=== PATIENT | female | born 1975 | race Caucasian/White ===

== ENCOUNTER 2017-06-12 16:37 | Outpatient (CLI) | payer OTHER ==
[~2017-06-12 16:37] MED LIST: METF850T PO
== END 2017-06-12 20:17 | disposition home or self-care (01) ==
LOC: MRD 16:37
PROVIDERS: ATTEND Family Medicine
DX: R22.1 Localized swelling, mass and lump, neck (principal)
CPT/HCPCS: 72050; 76536; Q0092

== ENCOUNTER 2017-06-17 06:22 | Outpatient (CLI) | payer OTHER ==
[2017-06-17 07:12] LABS: BASOPHILS # (AUTO) 0.2 K/uL (0.00-0.22); BASOPHILS % (AUTO) 2.1 % (0.0-2.0); EOSINOPHILS # (AUTO) 0.2 K/uL (0-0.4); EOSINOPHILS % (AUTO) 2.1 % (0.0-4.0); HEMATOCRIT 39.4 % (36-48); HEMOGLOBIN 13.2 g/dL (12.0-16.0); LYMPHOCYTES # (AUTO) 2.2 K/uL (2.5-16.5); LYMPHOCYTES % (AUTO) 30.6 % (20.5-51.1); MEAN CORPUSCULAR HEMOGLOBIN 31 pg (27-31); MEAN CORPUSCULAR HGB CONC 34 g/dL (33-37); MEAN CORPUSCULAR VOLUME 93 fL (80-94); MONOCYTES # (AUTO) 0.3 K/uL (0.8-1.0); MONOCYTES % (AUTO) 3.9 % (1.7-9.3); NEUTROPHILS # (AUTO) 4.3 K/uL (1.8-7.7); NEUTROPHILS % (AUTO) 61.3 % (42.2-75.2); PLATELET COUNT (AUTO) 307 K/uL (140-450); RED BLOOD CELL COUNT(AUTO) 4.25 MIL/uL (4.20-5.40); RED CELL DISTRIBUTION WIDTH 12.7 % (11.6-13.7); WHITE BLOOD COUNT (AUTO) 7.2 K/uL (4.8-10.8)
[2017-06-17 07:34] LABS: ALBUMIN 3.5 g/dL (3.4-5.0); ANION GAP 12.4 (8-16); CALCIUM 8.5 mg/dL (8.5-10.1); CARBON DIOXIDE 24.6 mmol/L (21-32); CHOL/HDL RATIO 6.5 (1-4.5); CREATININE 0.8 mg/dL (0.6-1.3); TOTAL BILIRUBIN 0.3 mg/dL (0.0-1.0); TOTAL PROTEIN, SERUM 7.5 g/dL (6.4-8.2)
== END 2017-06-17 21:21 | disposition home or self-care (01) ==
LOC: MLB 06:22
PROVIDERS: ATTEND Family Medicine
DX: E11.9 Type 2 diabetes mellitus without complications (principal)
CPT/HCPCS: 36415; 80053; 83036; 85025

== ENCOUNTER 2018-03-07 08:12 | Outpatient (CLI) | payer OTHER ==
[2018-03-07 09:04] LABS: BASOPHILS % (AUTO) 0.5 % (0.0-2.0); EOSINOPHILS # (AUTO) 0.1 K/uL (0-0.4); EOSINOPHILS % (AUTO) 1.6 % (0.0-4.0); HEMOGLOBIN 13.3 g/dL (12.0-16.0); LYMPHOCYTES # (AUTO) 1.3 K/uL (2.5-16.5); LYMPHOCYTES % (AUTO) 30.5 % (20.5-51.1); MEAN CORPUSCULAR HEMOGLOBIN 31 pg (27-31); MEAN CORPUSCULAR HGB CONC 34 g/dL (33-37); MEAN CORPUSCULAR VOLUME 92.1 fL (80-94); MONOCYTES # (AUTO) 0.3 K/uL (0.8-1.0); MONOCYTES % (AUTO) 6.5 % (1.7-9.3); NEUTROPHILS # (AUTO) 2.7 K/uL (1.8-7.7); NEUTROPHILS % (AUTO) 60.9 % (42.2-75.2); PLATELET COUNT (AUTO) 273 K/uL (140-450); RED BLOOD CELL COUNT(AUTO) 4.23 MIL/uL (4.20-5.40); RED CELL DISTRIBUTION WIDTH 13.4 % (11.6-13.7); WHITE BLOOD COUNT (AUTO) 4.4 K/uL (4.8-10.8)
[2018-03-07 10:22] LABS: ALBUMIN 3.4 g/dL (3.4-5.0); ANION GAP 13.3 (8-16); CREATININE 0.7 mg/dL (0.6-1.3); POTASSIUM 4.3 mmol/L (3.5-5.1); THYROID STIMULATING HORMONE 1.01 uIU/mL (0.34-3.74); TOTAL BILIRUBIN 0.4 mg/dL (0.0-1.0)
== END 2018-03-07 22:25 | disposition home or self-care (01) ==
LOC: MLB 08:12
PROVIDERS: ATTEND Student in an Organized Health Care Education/Training Program
DX: Z00.01 Encounter for general adult medical examination with abnormal findings (principal); R10.13 Epigastric pain; K21.9 Gastro-esophageal reflux disease without esophagitis; E11.9 Type 2 diabetes mellitus without complications; E78.5 Hyperlipidemia, unspecified
CPT/HCPCS: 36415; 76700; 80053; 82306; 83036; 84439; 84443; 85025

== ENCOUNTER 2018-08-06 14:30 | Emergency (ER) | payer OTHER ==
[~2018-08-06] VITALS: Ht 165.1 cm; Wt 99.8 kg
[2018-08-06 14:39] VITALS: BP 130/93
--- NOTE | 2018-08-06 15:07 | NUR ---
PT AMBULATES TO BED 7
--- NOTE | 2018-08-06 15:15 | NUR ---
PT C/O CHRONIC NECK PAIN WITH A BUMP X 2 YRS WITH VOMITING YESTERDAY AND NAUSEA TODAY, HEAD ACHE X 1 WK; DENIES INJURY HX; DM RX; METFORMIN
--- NOTE | 2018-08-06 16:11 | NUR ---
PT RESTING COMFORTABLY IN [facility] AT THIS TIME W/ VSS, RR EVEN AND UNLABORED. SAFETY PRECAUTIONS IN PLACE. WILL CONTINUE TO MONITOR.
[2018-08-06] MEDS ORDERED: HYDROcodone/APAP 10/325 MG 1 TAB TAB PO ONE (16:20)
--- NOTE | 2018-08-06 16:51 | NUR ---
PHLEB AT BEDSIDE
[2018-08-06 17:00] LABS: BASOPHILS # (AUTO) 0.1 K/uL (0.00-0.22); BASOPHILS % (AUTO) 0.8 % (0.0-2.0); EOSINOPHILS # (AUTO) 0.2 K/uL (0-0.4); EOSINOPHILS % (AUTO) 1.9 % (0.0-4.0); HEMOGLOBIN 13.5 g/dL (12.0-16.0); LYMPHOCYTES # (AUTO) 2.3 K/uL (2.5-16.5); LYMPHOCYTES % (AUTO) 27.9 % (20.5-51.1); MEAN CORPUSCULAR HEMOGLOBIN 31 pg (27-31); MEAN CORPUSCULAR HGB CONC 34 g/dL (33-37); MONOCYTES # (AUTO) 0.4 K/uL (0.8-1.0); MONOCYTES % (AUTO) 5.1 % (1.7-9.3); NEUTROPHILS # (AUTO) 5.2 K/uL (1.8-7.7); NEUTROPHILS % (AUTO) 64.3 % (42.2-75.2); PLATELET COUNT (AUTO) 322 K/uL (140-450); RED CELL DISTRIBUTION WIDTH 12.7 % (11.6-13.7); WHITE BLOOD COUNT (AUTO) 8.1 K/uL (4.8-10.8)
[2018-08-06 17:07] LABS: APPEARANCE,URINE CLEAR (CLEAR); BILIRUBIN,URINE NEGATIVE (NEGATIVE); BLOOD, URINE NEGATIVE (NEGATIVE); COLOR,URINE YELLOW (YELLOW); LEUKOCYTE ESTERASE ,URINE NEGATIVE (NEGATIVE); NITRITE, URINE NEGATIVE (NEGATIVE); PH,URINE 5.5 (5.0-9.0); UGLUCOSE 3+ (NEGATIVE)
--- NOTE | 2018-08-06 17:10 | NUR ---
PT CONTINUES TO REST COMFORTABLY ON [facility] AT THIS TIME W/ VSS. WILL CONTINUIE TO MONITOR, SAFETY PRECAUTIONS IN PLACE.
[2018-08-06 17:13] LABS: ANION GAP 11.5 (8-16); CARBON DIOXIDE 26.6 mmol/L (21-32); CREATININE 0.9 mg/dL (0.6-1.3); POTASSIUM 4.1 mmol/L (3.5-5.1)
[2018-08-06] MEDS ORDERED: KETOROLAC 60 MG/2 ML VIAL IM ONE (17:15)
[2018-08-06 17:19] LABS: ALBUMIN 3.7 g/dL (3.4-5.0); TOTAL BILIRUBIN 0.3 mg/dL (0.0-1.0)
--- NOTE | 2018-08-06 18:32 | NUR ---
PT TAKEN TO CT SCAN AT THIS TIME VIA W/C
--- NOTE | 2018-08-06 19:14 | NUR ---
PT RESTING COMFORTABLY IN [facility] AT THIS TIME W/ VSS, RR EVEN AND UNLABORED. PT NEEDS MET. WILL CONTINUE TO MONITOR.
--- NOTE | 2018-08-06 19:21 | NUR ---
TRANSFER OF CARE AT THIS TIME, REPORT GIVEN TO LUI ORTIZ
--- NOTE | 2018-08-06 19:22 | NUR ---
REPORT RECIEVED FROM ABIGAIL POE. PT IN STABLE CONDITION
[2018-08-06 19:51] VITALS: BP 126/85
--- NOTE | 2018-08-06 19:53 | NUR ---
Patient discharged with v/s stable. Written and verbal after care instructions given and explained. Patient alert, oriented and verbalized understanding of instructions. Ambulatory with steady gait. All questions addressed prior to discharge. ID band removed. Patient advised to follow up with PMD. Rx of FLEXERIL, DOXYCYCLINE given. Patient educated on indication of medication including possible reaction and side effects. Opportunity to ask questions provided and answered.
== END 2018-08-06 19:52 | disposition home or self-care (01) ==
LOC: MED 14:30
DX: R22.1 Localized swelling, mass and lump, neck (principal); R51 Headache
CPT/HCPCS: 36415; 72125; 80053; 81003; 81025; 83690; 85025; 99285; J1885

== ENCOUNTER 2018-09-07 10:32 | Emergency (ER) | payer OTHER ==
[~2018-09-07] VITALS: Ht 165.1 cm; Wt 100.2 kg
[2018-09-07 11:16] VITALS: BP 131/83
--- NOTE | 2018-09-07 11:23 | NUR ---
PATIENT TO FOR NEXT AVAIL. BED. NO DISTRESS
--- NOTE | 2018-09-07 12:16 | NUR ---
PT AMBULATES TO BED 10
--- NOTE | 2018-09-07 12:32 | NUR ---
PT C/O LOWER ABDOMINAL PAIN AND BACK PAIN WITH OFF/ON DIARRHEA. DENIES N/V. HOME PREN. POSITIVE PER PATIENT. HX:DM TAKES METFORMIN 500MG DAILY. PATIENT STATES PAIN OF 7/10 AT THIS TIME; VSS; PATIENT POSITIONED FOR COMFORT; HOB ELEVATED; BEDRAILS UP X1; BED DOWN. ER MD MADE AWARE OF PT STATUS.
[2018-09-07 12:46] LABS: BASOPHILS # (AUTO) 0.1 K/uL (0.00-0.22); BASOPHILS % (AUTO) 0.8 % (0.0-2.0); EOSINOPHILS # (AUTO) 0.1 K/uL (0-0.4); EOSINOPHILS % (AUTO) 1.4 % (0.0-4.0); HEMOGLOBIN 13.5 g/dL (12.0-16.0); LYMPHOCYTES # (AUTO) 2.1 K/uL (2.5-16.5); LYMPHOCYTES % (AUTO) 24.6 % (20.5-51.1); MEAN CORPUSCULAR HEMOGLOBIN 31 pg (27-31); MEAN CORPUSCULAR HGB CONC 34 g/dL (33-37); MEAN CORPUSCULAR VOLUME 92.6 fL (80-94); MONOCYTES # (AUTO) 0.5 K/uL (0.8-1.0); MONOCYTES % (AUTO) 5.9 % (1.7-9.3); NEUTROPHILS # (AUTO) 5.8 K/uL (1.8-7.7); NEUTROPHILS % (AUTO) 67.3 % (42.2-75.2); PLATELET COUNT (AUTO) 299 K/uL (140-450); RED BLOOD CELL COUNT(AUTO) 4.32 MIL/uL (4.20-5.40); RED CELL DISTRIBUTION WIDTH 13.3 % (11.6-13.7); WHITE BLOOD COUNT (AUTO) 8.6 K/uL (4.8-10.8)
[2018-09-07 12:54] LABS: APPEARANCE,URINE CLEAR (CLEAR); COLOR,URINE YELLOW (YELLOW)
[2018-09-07 12:55] LABS: BILIRUBIN,URINE NEGATIVE (NEGATIVE); BLOOD, URINE NEGATIVE (NEGATIVE); LEUKOCYTE ESTERASE ,URINE NEGATIVE (NEGATIVE); NITRITE, URINE NEGATIVE (NEGATIVE); UGLUCOSE NEGATIVE (NEGATIVE)
[2018-09-07 13:05] LABS: ANION GAP 14.5 (8-16); CARBON DIOXIDE 22.2 mmol/L (21-32); CREATININE 0.8 mg/dL (0.6-1.3); POTASSIUM 3.7 mmol/L (3.5-5.1)
[2018-09-07 13:08] LABS: RBC,URINE 0-5 (RARE) /HPF (0-5); WBC,URINE 0-5 (RARE) /HPF (0-5)
[2018-09-07 14:24] VITALS: BP 133/71
== END 2018-09-07 14:25 | disposition home or self-care (01) ==
LOC: MED 10:32
DX: O26.891 Other specified pregnancy related conditions, first trimester (principal); R10.30 Lower abdominal pain, unspecified; R19.7 Diarrhea, unspecified; E11.9 Type 2 diabetes mellitus without complications; E78.00 Pure hypercholesterolemia, unspecified; Z3A.01 Less than 8 weeks gestation of pregnancy; Z79.84 Long term (current) use of oral hypoglycemic drugs
CPT/HCPCS: 36415; 76801; 80048; 81001; 81025; 84702; 85025; 86900; 86901; 99285; Q0092

== ENCOUNTER 2018-09-16 06:32 | Outpatient (CLI) | payer OTHER ==
[2018-09-16 09:48] LABS: BASOPHILS % (AUTO) 0.5 % (0.0-2.0); EOSINOPHILS # (AUTO) 0.1 K/uL (0-0.4); EOSINOPHILS % (AUTO) 1.3 % (0.0-4.0); HEMATOCRIT 38.4 % (36-48); HEMOGLOBIN 12.9 g/dL (12.0-16.0); MEAN CORPUSCULAR HEMOGLOBIN 31 pg (27-31); MEAN CORPUSCULAR HGB CONC 34 g/dL (33-37); MEAN CORPUSCULAR VOLUME 93.1 fL (80-94); MONOCYTES # (AUTO) 0.4 K/uL (0.8-1.0); NEUTROPHILS # (AUTO) 5.1 K/uL (1.8-7.7); NEUTROPHILS % (AUTO) 67.2 % (42.2-75.2); PLATELET COUNT (AUTO) 298 K/uL (140-450); RED BLOOD CELL COUNT(AUTO) 4.13 MIL/uL (4.20-5.40); RED CELL DISTRIBUTION WIDTH 13.1 % (11.6-13.7); WHITE BLOOD COUNT (AUTO) 7.6 K/uL (4.8-10.8)
[2018-09-16 10:07] LABS: ALBUMIN 3.8 g/dL (3.4-5.0); CREATININE 0.7 mg/dL (0.6-1.3); TOTAL BILIRUBIN 0.4 mg/dL (0.0-1.0)
[2018-09-18 06:21] LABS: CHLAMYDIA TRACHOMATIS AMP DNA Negative (Negative)
== END 2018-09-16 21:04 | disposition home or self-care (01) ==
LOC: MLB 06:32
PROVIDERS: ATTEND Obstetrics & Gynecology
DX: Z11.3 Encounter for screening for infections with a predominantly sexual mode of transmission (principal); E84.9 Cystic fibrosis, unspecified
CPT/HCPCS: 36415; 80053; 83036; 84702; 85025; 86592; 86702; 86762; 86870; 86886; 86900; 86901; 87086; 87491

== ENCOUNTER 2018-10-12 17:02 | Outpatient (CLI) | payer OTHER | END 2018-10-12 20:35 | disposition home or self-care (01) | LOC: MLB 17:02 | PROVIDERS: ATTEND Obstetrics & Gynecology | DX: O09.90 Supervision of high risk pregnancy, unspecified, unspecified trimester (principal); Z3A.00 Weeks of gestation of pregnancy not specified | CPT/HCPCS: 36415; 86592 ==

== ENCOUNTER 2018-12-11 06:16 | Outpatient (CLI) | payer OTHER | END 2018-12-11 18:46 | disposition home or self-care (01) | LOC: MLB 06:16 | PROVIDERS: ATTEND Family Medicine | DX: O09.92 Supervision of high risk pregnancy, unspecified, second trimester (principal); O24.112 Pre-existing type 2 diabetes mellitus, in pregnancy, second trimester; E11.9 Type 2 diabetes mellitus without complications; Z3A.19 19 weeks gestation of pregnancy | CPT/HCPCS: 36415; 83036 ==

== ENCOUNTER 2019-01-09 13:19 | Emergency (ER) | payer OTHER ==
[~2019-01-09] VITALS: Ht 165.1 cm; Wt 94.0 kg
[2019-01-09 13:23] VITALS: BP 131/75
--- NOTE | 2019-01-09 13:33 | NUR ---
PT TO LOBBY AT THIS TIME, RR EVEN AND UNLABORED, STEADY GAIT
--- NOTE | 2019-01-09 13:53 | NUR ---
PATIENT AMBULATED TO BED 7 AT THIS TIME.
--- NOTE | 2019-01-09 14:00 | NUR ---
PT. BIB BOYFRIEND W C/O COUGH SINCE FRIDAY WITH GREEN PHLEGM SINCE YESTERDAY. SOB X YESTERDAY. PT. IS 6 MONTHS , LMP: 07/21/2018 . [id number]. CHEST PAIN X FRIDAY AFTERNOON STERNAL CHEST PAIN THAT RADIATES TO BACK CONSTANT. PT STATES " BABY IS MOVING THE SAME" DENIES ANY ABD PAIN AT THIS TIME. DENIES N/V/D; SKIN IS PINK/WARM/DRY; AAOX4 WITH EVEN AND STEADY GAIT; LUNGS CLEAR BL; HR EVEN AND REGULAR; PT DENIES ANY FEVER, CP, SOB, OR COUGH AT THIS TIME; PATIENT STATES PAIN OF 5/10 AT THIS TIME; VSS; PATIENT POSITIONED FOR COMFORT; HOB ELEVATED; BEDRAILS UP X2; BED DOWN. ER MD MADE AWARE OF PT STATUS.
[2019-01-09 16:11] LABS: APPEARANCE,URINE CLEAR (CLEAR); BILIRUBIN,URINE NEGATIVE (NEGATIVE); BLOOD, URINE NEGATIVE (NEGATIVE); COLOR,URINE YELLOW (YELLOW); LEUKOCYTE ESTERASE ,URINE NEGATIVE (NEGATIVE); NITRITE, URINE NEGATIVE (NEGATIVE); UGLUCOSE NEGATIVE (NEGATIVE)
[2019-01-09 16:36] VITALS: BP 108/68
--- NOTE | 2019-01-09 16:37 | NUR ---
Patient discharged with v/s stable. Written and verbal after care instructions given and explained. Patient verbalized understanding. Ambulatory with steady gait. All questions addressed prior to discharge. Advised to follow up with PMD.
== END 2019-01-09 16:37 | disposition home or self-care (01) ==
LOC: MED 13:19
DX: O99.511 Diseases of the respiratory system complicating pregnancy, first trimester (principal); J06.9 Acute upper respiratory infection, unspecified; E11.9 Type 2 diabetes mellitus without complications; Z3A.01 Less than 8 weeks gestation of pregnancy; Z79.84 Long term (current) use of oral hypoglycemic drugs
CPT/HCPCS: 36415; 81003; 87804; 99283

== ENCOUNTER 2019-01-20 06:51 | Outpatient (CLI) | payer OTHER ==
[2019-01-20 07:18] LABS: BASOPHILS % (AUTO) 0.3 % (0.0-2.0); EOSINOPHILS # (AUTO) 0.1 K/uL (0-0.4); EOSINOPHILS % (AUTO) 0.6 % (0.0-4.0); HEMATOCRIT 35.4 % (36-48); HEMOGLOBIN 11.9 g/dL (12.0-16.0); LYMPHOCYTES # (AUTO) 1.6 K/uL (2.5-16.5); LYMPHOCYTES % (AUTO) 17.9 % (20.5-51.1); MEAN CORPUSCULAR HEMOGLOBIN 32 pg (27-31); MEAN CORPUSCULAR HGB CONC 34 g/dL (33-37); MEAN CORPUSCULAR VOLUME 95.7 fL (80-94); MONOCYTES # (AUTO) 0.5 K/uL (0.8-1.0); MONOCYTES % (AUTO) 5.3 % (1.7-9.3); NEUTROPHILS # (AUTO) 6.7 K/uL (1.8-7.7); NEUTROPHILS % (AUTO) 75.9 % (42.2-75.2); PLATELET COUNT (AUTO) 290 K/uL (140-450); RED BLOOD CELL COUNT(AUTO) 3.69 MIL/uL (4.20-5.40); RED CELL DISTRIBUTION WIDTH 13.3 % (11.6-13.7); WHITE BLOOD COUNT (AUTO) 8.8 K/uL (4.8-10.8)
== END 2019-01-20 19:42 | disposition home or self-care (01) ==
LOC: MLB 06:51
PROVIDERS: ATTEND Obstetrics & Gynecology
DX: O09.519 Supervision of elderly primigravida, unspecified trimester (principal); O10.019 Pre-existing essential hypertension complicating pregnancy, unspecified trimester; O24.119 Pre-existing type 2 diabetes mellitus, in pregnancy, unspecified trimester; O99.280 Endocrine, nutritional and metabolic diseases complicating pregnancy, unspecified trimester; E11.9 Type 2 diabetes mellitus without complications; E78.00 Pure hypercholesterolemia, unspecified; Z3A.00 Weeks of gestation of pregnancy not specified
CPT/HCPCS: 36415; 85025; 86592

== ENCOUNTER 2019-04-01 11:25 | Observation (INO) | payer OTHER ==
[~2019-04-01] VITALS: Ht 165.1 cm; Wt 96.2 kg
[2019-04-01] MEDS ORDERED: PREN-380 PO (11:31)
[2019-04-01 13:11] VITALS: BP 123/73
== END 2019-04-01 13:06 | disposition home or self-care (01) ==
LOC: MLD 11:25
PROVIDERS: ADMIT Obstetrics & Gynecology; ATTEND Obstetrics & Gynecology
DX: O36.8130 Decreased fetal movements, third trimester, not applicable or unspecified (principal); O62.9 Abnormality of forces of labor, unspecified; Z3A.36 36 weeks gestation of pregnancy
CPT/HCPCS: 76819; G0378; Q0092; 59025

== ENCOUNTER 2019-04-12 14:38 | Observation (INO) | payer OTHER ==
[~2019-04-12] VITALS: Ht 165.1 cm; Wt 101.6 kg
[~2019-04-12 14:38] MED LIST changes: +PREN-380 PO
[2019-04-12] MEDS ORDERED: NOVR SUBQ (15:14)
[2019-04-12] MEDS ORDERED: FERR325E14 PO (15:14)
[2019-04-12 15:17] VITALS: BP 115/66
[2019-04-13] MEDS ORDERED: METF500T PO (05:49)
== END 2019-04-12 16:55 | disposition home or self-care (01) ==
LOC: MLD 14:38
PROVIDERS: ADMIT Obstetrics & Gynecology; ATTEND Obstetrics & Gynecology
DX: O26.899 Other specified pregnancy related conditions, unspecified trimester (principal); R10.9 Unspecified abdominal pain; Z3A.00 Weeks of gestation of pregnancy not specified
CPT/HCPCS: 59025; 76815; 81000; G0378; Q0092

== ENCOUNTER 2019-04-13 03:20 | Inpatient (IN) | payer OTHER ==
[~2019-04-13] VITALS: Ht 165.1 cm; Wt 98.0 kg
[~2019-04-13 03:20] MED LIST changes: +FERR325E14 PO; +NOVR SUBQ
[2019-04-13] MEDS ORDERED: METHYLERGONOVINE 0.2 MG/ML AMP IM PRN ×2 (03:55→12:10)
[2019-04-13] MEDS ORDERED: AMPICILLIN 2,000 MG in NACL 0.9% MINI-BAG PLUS 100 ML IV SCH (03:55)
[2019-04-13] MEDS ORDERED: NALBUPHINE 10 MG/ML AMP IVP PRN (03:55)
[2019-04-13] MEDS ORDERED: OXYTOCIN 20 UNITS in LACTATED RINGERS 1,000 ML IV SCH (03:55)
[2019-04-13] MEDS ORDERED: PROMETHAZINE 25 MG/ML VIAL IVP PRN (03:55)
[2019-04-13] MEDS ORDERED: AMPICILLIN 1,000 MG in NACL 0.9% MINI-BAG PLUS 50 ML IV SCH (04:00)
[2019-04-13] MEDS ORDERED: BLOOD GLUCOSE MONITORING 1 DEV DEV FS SCH (04:00)
[2019-04-13] MEDS ORDERED: AMPICILLIN 2,000 MG VIAL ONE (04:20)
[2019-04-13 04:26] LABS: BASOPHILS % (AUTO) 0.4 % (0.0-2.0); EOSINOPHILS # (AUTO) 0.1 K/uL (0-0.4); HEMOGLOBIN 12.8 g/dL (12.0-16.0); LYMPHOCYTES # (AUTO) 2.5 K/uL (2.5-16.5); LYMPHOCYTES % (AUTO) 26.6 % (20.5-51.1); MEAN CORPUSCULAR HEMOGLOBIN 34 pg (27-31); MEAN CORPUSCULAR HGB CONC 35 g/dL (33-37); MEAN CORPUSCULAR VOLUME 97.5 fL (80-94); MONOCYTES # (AUTO) 0.6 K/uL (0.8-1.0); MONOCYTES % (AUTO) 6.1 % (1.7-9.3); NEUTROPHILS # (AUTO) 6.1 K/uL (1.8-7.7); NEUTROPHILS % (AUTO) 65.9 % (42.2-75.2); PLATELET COUNT (AUTO) 246 K/uL (140-450); RED CELL DISTRIBUTION WIDTH 13.6 % (11.6-13.7); WHITE BLOOD COUNT (AUTO) 9.2 K/uL (4.8-10.8)
[2019-04-13] MEDS: LACTATED RINGERS 1,000 ML IV SCH ×2 (04:34→10:30)
[2019-04-13 04:45] LABS: ALBUMIN 2.6 g/dL (3.4-5.0); ANION GAP 15.1 (8-16); CREATININE 0.8 mg/dL (0.6-1.3); POTASSIUM 4.1 mmol/L (3.5-5.1); TOTAL BILIRUBIN 0.2 mg/dL (0.0-1.0)
[2019-04-13] MEDS ORDERED: OXYTOCIN 20 UNITS/LR PREMIX 1,000 ML IV ONE (05:18)
[2019-04-13 05:30] VITALS: BP 104/70
[2019-04-13] MEDS ORDERED: METF500T PO (05:49)
[2019-04-13] MEDS ORDERED: NALBUPHINE 10 MG/ML AMP ONE (07:40)
[2019-04-13 07:43] LABS: APPEARANCE,URINE CLEAR (CLEAR); BILIRUBIN,URINE NEGATIVE (NEGATIVE); BLOOD, URINE NEGATIVE (NEGATIVE); COLOR,URINE YELLOW (YELLOW); LEUKOCYTE ESTERASE ,URINE TRACE (NEGATIVE); NITRITE, URINE NEGATIVE (NEGATIVE); PH,URINE 5.5 (5.0-9.0); UGLUCOSE NEGATIVE (NEGATIVE)
[2019-04-13] MEDS ORDERED: AMPICILLIN 1,000 MG VIAL ONE (08:00)
[2019-04-13 08:14] LABS: RBC,URINE 0-5 /HPF (0-5)
--- NOTE | 2019-04-13 08:27 | NUR ---
PATIENT HAS BEEN SCREENED AND CATEGORIZED LOW NUTRITION RISK. PATIENT WILL BE SEEN WITHIN 7 DAYS OF ADMISSION. 04/19/[address]
[2019-04-13] MEDS ORDERED: LIDOCAINE 1% 500 MG/50 ML VIAL ONE (08:49)
[2019-04-13] MEDS ORDERED: OXYTOCIN 10 UNITS/ML VIAL ONE (09:34)
[2019-04-13] MEDS ORDERED: TERBUTALINE 1 MG/ML VIAL SUBQ ONE ×2 (10:09→12:05)
[2019-04-13] MEDS ORDERED: BUPIVACAINE 0.125%/NS PREMIX 250 ML ONE (10:14)
[2019-04-13] MEDS ORDERED: LIDOCAINE 1% 500 MG/50 ML VIAL INJ SCH (12:05)
[2019-04-13] MEDS ORDERED: OXYTOCIN 10 UNITS/ML VIAL IM ONE (12:05)
[2019-04-13] MEDS ORDERED: IBUPROFEN 600 MG TAB PO PRN (12:10)
[2019-04-13] MEDS ORDERED: BENZOCAINE/MENTHOL 20%-0.5% 60 GM CAN TP PRN (12:10)
[2019-04-13] MEDS: metFORMIN 500 MG TAB PO SCH (14:07)
[2019-04-14 06:03] LABS: HEMATOCRIT 32.1 % (36-48); HEMOGLOBIN 11.4 g/dL (12.0-16.0)
[2019-04-14] MEDS: metFORMIN 500 MG TAB PO SCH ×2 (08:28→18:23)
[2019-04-14] MEDS ORDERED: DOCUSATE SOD/SENNA 50/8.6 MG 1 TAB PO SCH (21:00)
[2019-04-15] MEDS: metFORMIN 500 MG TAB PO SCH (09:09)
== END 2019-04-15 14:25 | disposition home or self-care (01) | DRG 807 ==
LOC: MLD 03:20 → MFCC 15:00
PROVIDERS: ADMIT Obstetrics & Gynecology; ATTEND Obstetrics & Gynecology
PROC: 10E0XZZ Delivery of Products of Conception, External Approach (ICD-10-PCS; principal; 2019-04-13)
PROC: 0HQ9XZZ Repair Perineum Skin, External Approach (ICD-10-PCS; 2019-04-13)
PROC: 0UQMXZZ Repair Vulva, External Approach (ICD-10-PCS; 2019-04-13)
PROC: 3E033VJ Introduction of Other Hormone into Peripheral Vein, Percutaneous Approach (ICD-10-PCS; 2019-04-13)
DX: O42.92 Full-term premature rupture of membranes, unspecified as to length of time between rupture and onset of labor (principal); Z37.0 Single live birth; O70.0 First degree perineal laceration during delivery; O71.82 Other specified trauma to perineum and vulva; Z3A.38 38 weeks gestation of pregnancy
CPT/HCPCS: 36415; 51702; 80053; 81001; 82948; 85018; 85025; 86592; 86886; 86900; 86901; 87086; 87340; J0290; J2001; J2300; J2590; J3105; J3490; J7120

== ENCOUNTER 2019-04-28 08:31 | Outpatient (CLI) | payer OTHER ==
[~2019-04-28 08:31] MED LIST changes: +METF500T PO; -METF850T PO
== END 2019-04-28 22:11 | disposition home or self-care (01) ==
LOC: MRD 08:31
PROVIDERS: ATTEND Family Medicine
DX: M67.431 Ganglion, right wrist (principal)
CPT/HCPCS: 76881; Q0092

== ENCOUNTER 2020-05-27 09:02 | Emergency (ER) | payer OTHER ==
[~2020-05-27] VITALS: Ht 180.3 cm; Wt 101.2 kg
[2020-05-27 09:09] VITALS: BP 155/105
--- NOTE | 2020-05-27 09:14 | NUR ---
c/o left bigtoe ingrown toenail x 2 week. med hx: DM
== END 2020-05-27 09:16 | disposition home or self-care (01) ==
LOC: MED 09:02
DX: L60.0 Ingrowing nail (principal); E11.9 Type 2 diabetes mellitus without complications; I11.0 Hypertensive heart disease with heart failure; Z79.899 Other long term (current) drug therapy; Z79.84 Long term (current) use of oral hypoglycemic drugs
CPT/HCPCS: 99283

== ENCOUNTER 2020-06-19 13:26 | Outpatient (CLI) | payer OTHER ==
[2020-06-19 14:08] LABS: TOTAL BILIRUBIN 0.3 mg/dL (0.0-1.0)
== END 2020-06-19 20:03 | disposition home or self-care (01) ==
LOC: MLB 13:26
PROVIDERS: ATTEND Family Medicine
DX: K76.0 Fatty (change of) liver, not elsewhere classified (principal)
CPT/HCPCS: 36415; 80076

== ENCOUNTER 2021-01-20 09:05 | Outpatient (CLI) | payer OTHER ==
[2021-01-20 09:29] LABS: BASOPHILS # (AUTO) 0.1 K/uL (0.00-0.22); EOSINOPHILS # (AUTO) 0.1 K/uL (0-0.4); EOSINOPHILS % (AUTO) 1.5 % (0.0-4.0); HEMATOCRIT 39.5 % (36-48); HEMOGLOBIN 13.3 g/dL (12.0-16.0); LYMPHOCYTES # (AUTO) 2.3 K/uL (2.5-16.5); MEAN CORPUSCULAR HEMOGLOBIN 31 pg (27-31); MEAN CORPUSCULAR HGB CONC 34 g/dL (33-37); MEAN CORPUSCULAR VOLUME 92.7 fL (80-94); MONOCYTES # (AUTO) 0.4 K/uL (0.8-1.0); MONOCYTES % (AUTO) 5.4 % (1.7-9.3); NEUTROPHILS # (AUTO) 3.9 K/uL (1.8-7.7); NEUTROPHILS % (AUTO) 58.1 % (42.2-75.2); PLATELET COUNT (AUTO) 322 K/uL (140-450); RED BLOOD CELL COUNT(AUTO) 4.27 MIL/uL (4.20-5.40); RED CELL DISTRIBUTION WIDTH 12.9 % (11.6-13.7); WHITE BLOOD COUNT (AUTO) 6.7 K/uL (4.8-10.8)
[2021-01-20 09:55] LABS: ALBUMIN 3.8 g/dL (3.4-5.0); ANION GAP 11.7 (8-16); CARBON DIOXIDE 26.4 mmol/L (21-32); CHOL/HDL RATIO 5.5 (1-4.5); CREATININE 0.8 mg/dL (0.6-1.3); FREE T4 (FREE THYROXINE) 0.97 ng/dL (0.76-1.46); POTASSIUM 4.1 mmol/L (3.5-5.1); THYROID STIMULATING HORMONE 1.35 uIU/mL (0.34-3.74); TOTAL BILIRUBIN 0.4 mg/dL (0.0-1.0)
[2021-01-21 08:06] LABS: FOLLICLE STIMULATING HORMONE 7.2 mIU/mL (.); MICROALBUMIN, UR RANDOM 15.9 ug/mL (Not Estab.)
== END 2021-01-20 20:14 | disposition home or self-care (01) ==
LOC: MLB 09:05
PROVIDERS: ATTEND Family Medicine
DX: E11.9 Type 2 diabetes mellitus without complications (principal); E78.00 Pure hypercholesterolemia, unspecified; N95.1 Menopausal and female climacteric states
CPT/HCPCS: 36415; 80053; 82043; 82670; 83001; 83036; 84439; 84443; 85025

== ENCOUNTER 2022-08-17 10:37 | Outpatient (CLI) | payer OTHER ==
[~2022-08-17 10:37] MED LIST changes: +METF-346 PO; -METF500T PO
[2022-08-17 12:27] LABS: ALBUMIN 3.8 g/dL (3.4-5.0); ANION GAP 12.5 (8-16); CARBON DIOXIDE 27.4 mmol/L (21-32); CHOL/HDL RATIO 5.4 (1-4.5); CREATININE 0.7 mg/dL (0.6-1.3); POTASSIUM 3.9 mmol/L (3.5-5.1); TOTAL BILIRUBIN 0.5 mg/dL (0.0-1.0)
[2022-08-18 08:07] LABS: MICROALBUMIN, UR RANDOM 6.8 ug/mL (Not Estab.)
== END 2022-08-17 20:30 | disposition home or self-care (01) ==
LOC: MLB 10:37
PROVIDERS: ATTEND Internal Medicine
DX: E11.65 Type 2 diabetes mellitus with hyperglycemia (principal)
CPT/HCPCS: 36415; 80053; 82043; 82306; 83036

== ENCOUNTER 2022-12-20 08:23 | Outpatient (CLI) | payer OTHER ==
[2022-12-20 09:01] LABS: ALBUMIN 4.2 g/dL (3.4-5.0); ANION GAP 12.8 (8-16); CARBON DIOXIDE 24.8 mmol/L (21-32); CHOL/HDL RATIO 5.3 (1-4.5); CREATININE 0.8 mg/dL (0.6-1.3); POTASSIUM 4.6 mmol/L (3.5-5.1); TOTAL BILIRUBIN 0.3 mg/dL (0.0-1.0)
== END 2022-12-20 19:49 | disposition home or self-care (01) ==
LOC: MLB 08:23
PROVIDERS: ATTEND Internal Medicine
DX: E11.65 Type 2 diabetes mellitus with hyperglycemia (principal)
CPT/HCPCS: 36415; 80053; 83036

== ENCOUNTER 2023-03-28 11:44 | Outpatient (CLI) | payer OTHER ==
[2023-03-28 13:12] LABS: ALBUMIN 3.8 g/dL (3.4-5.0); ANION GAP 11.6 (8-16); CARBON DIOXIDE 26.2 mmol/L (21-32); CHOL/HDL RATIO 5.4 (1-4.5); CREATININE 0.7 mg/dL (0.6-1.3); POTASSIUM 3.8 mmol/L (3.5-5.1); TOTAL BILIRUBIN 0.4 mg/dL (0.0-1.0)
[2023-03-29 15:06] LABS: T4 (THYROXINE) 7.2 ug/dL (4.5-12.0); THYROID STIM HORMONE-LABCORP 1.3 uIU/mL (0.450-4.500)
[2023-03-29 16:06] LABS: FOLIC ACID 13.9 ng/mL (>3.0)
== END 2023-03-28 20:23 | disposition home or self-care (01) ==
LOC: MLB 11:44
PROVIDERS: ATTEND Internal Medicine
DX: E11.65 Type 2 diabetes mellitus with hyperglycemia (principal); E11.42 Type 2 diabetes mellitus with diabetic polyneuropathy; E55.9 Vitamin D deficiency, unspecified; R53.82 Chronic fatigue, unspecified
CPT/HCPCS: 36415; 80053; 82306; 82607; 82746; 83036; 84436; 84443; 84479

== ENCOUNTER 2023-07-02 08:39 | Outpatient (CLI) | payer OTHER ==
[2023-07-02 09:14] LABS: ALBUMIN 3.7 g/dL (3.4-5.0); ANION GAP 11.8 (8-16); CALCIUM 8.5 mg/dL (8.5-10.1); CARBON DIOXIDE 26.5 mmol/L (21-32); CREATININE 0.8 mg/dL (0.6-1.3); POTASSIUM 4.3 mmol/L (3.5-5.1); TOTAL BILIRUBIN 0.3 mg/dL (0.0-1.0); TOTAL PROTEIN, SERUM 7.5 g/dL (6.4-8.2)
== END 2023-07-02 20:13 | disposition home or self-care (01) ==
LOC: MLB 08:39
PROVIDERS: ATTEND Internal Medicine
DX: E11.65 Type 2 diabetes mellitus with hyperglycemia (principal)
CPT/HCPCS: 36415; 80053; 83036

== ENCOUNTER 2023-11-03 08:24 | Outpatient (CLI) | payer OTHER ==
[2023-11-03 09:34] LABS: ALBUMIN 3.5 g/dL (3.4-5.0); ANION GAP 12.4 (8-16); CALCIUM 8.7 mg/dL (8.5-10.1); CARBON DIOXIDE 25.7 mmol/L (21-32); CHOL/HDL RATIO 5.8 (1-4.5); CREATININE 0.7 mg/dL (0.6-1.3); POTASSIUM 4.1 mmol/L (3.5-5.1); TOTAL BILIRUBIN 0.5 mg/dL (0.0-1.0); TOTAL PROTEIN, SERUM 7.6 g/dL (6.4-8.2)
[2023-11-04 12:07] LABS: MICROALBUMIN, UR RANDOM 15.3 ug/mL (Not Estab.)
[2023-11-04 16:00] LABS: HEMOGLOBIN A1C 10.2 % (4.8-5.6)
== END 2023-11-03 20:12 | disposition home or self-care (01) ==
LOC: MLB 08:24
PROVIDERS: ATTEND Internal Medicine
DX: E11.65 Type 2 diabetes mellitus with hyperglycemia (principal)
CPT/HCPCS: 36415; 80053; 82043; 83036

== ENCOUNTER 2024-01-16 23:34 | Emergency (ER) | payer OTHER ==
[~2024-01-16] VITALS: Ht 165.1 cm; Wt 102.1 kg
[2024-01-16 23:55] VITALS: BP 118/87; PULSE 90; RESP 17; TEMP 98; O2SAT 97
[2024-01-17 00:51] VITALS: BP 118/87; PULSE 90; RESP 17; TEMP 98; O2SAT 98
[2024-01-17] MEDS ORDERED: SULF-58 PO (02:41)
[2024-01-17] MEDS ORDERED: CEPH-588 PO (02:41)
[2024-01-17] MEDS ORDERED: SULFAMETH/TRIMETH DS 800/160MG 1 TAB PO ONE (02:45)
[2024-01-17] MEDS ORDERED: cephALEXin 500 MG CAP PO ONE (02:45)
== END 2024-01-17 02:52 | disposition home or self-care (01) ==
LOC: MED 23:34
DX: L03.115 Cellulitis of right lower limb (principal); I11.9 Hypertensive heart disease without heart failure; E11.9 Type 2 diabetes mellitus without complications; Z79.4 Long term (current) use of insulin; Z79.899 Other long term (current) drug therapy
CPT/HCPCS: 99284

== ENCOUNTER 2024-03-05 12:58 | Emergency (ER) | payer OTHER ==
[~2024-03-05] VITALS: Ht 165.1 cm; Wt 102.5 kg
[~2024-03-05 12:58] MED LIST changes: +CEPH-588 PO; +SULF-58 PO
[2024-03-05 13:35] VITALS: BP 140/83; PULSE 112; RESP 20; TEMP 97.6; O2SAT 97
[2024-03-05] MEDS ORDERED: OFLOS LEFT EYE (13:59)
== END 2024-03-05 14:51 | disposition home or self-care (01) ==
LOC: MED 12:58
DX: H10.9 Unspecified conjunctivitis (principal); J06.9 Acute upper respiratory infection, unspecified; E11.9 Type 2 diabetes mellitus without complications; I10 Essential (primary) hypertension; E78.00 Pure hypercholesterolemia, unspecified; Z79.899 Other long term (current) drug therapy; Z79.4 Long term (current) use of insulin
CPT/HCPCS: 99283